=== PATIENT | female | born 1995 ===

== ENCOUNTER 2022-01-13 12:43 | Emergency (ER) | payer SELFPAY ==
[2022-01-13] MEDS ORDERED: ACETAMINOPHEN 500 MG TAB PO ONE (13:16)
--- NOTE | 2022-01-13 13:18 | Emergency Department Report ---
ED Female HPI - General Chief complaint: Vaginal Bleeding Stated complaint: 12 WEEKS BLEEDING Source: patient Mode of arrival: Ambulatory Limitations: No Limitations - History of Present Illness Initial comments: Patient is a A1 26-year-old female who is approximately 12 weeks gestation presented to the ED with complaint of acute onset suprapubic pain and vaginal bleeding for the last 8 hours. Patient states that the bleeding increased in intensity 4 hours prior to arrival in the ED. Patient denies dizziness, syncope, lightheadedness, headache, dysuria, urinary frequency and urgency, fall, traumatic injury, heavy lifting, low back pain, chest pain or shortness of breath, fever and chills. MD Complaint: vaginal bleeding, pelvic pain -: Sudden, hour(s) (8) Location: suprapubic, other (Vaginal) Radiation: non-radiating Severity: severe Severity scale (0 -10): 7 Quality: cramping, sharp Consistency: constant Improves with: none Worsens with: movement Are you Now?: Yes Associated Symptoms: vaginal bleeding, abdominal pain (suprapubic) - Related Data Sexually active: Yes : 2 Para: 0 A: 1 Previous Rx's Medication Instructions Recorded Last Taken Type Acetaminophen [Tylenol] 500 mg PO Q6HR PRN #40 tablet 01/13/22 Unknown Rx Allergies Allergy/AdvReac Type Severity Reaction Status Date / Time No Known Allergies Allergy Verified 01/13/22 12:52 ED Review of Systems ROS: Stated complaint: 12 WEEKS BLEEDING Other details as noted in HPI Constitutional: denies: chills, fever Eyes: denies: eye pain, eye discharge, vision change ENT: denies: ear pain, throat pain Respiratory: denies: cough, shortness of breath, wheezing Cardiovascular: denies: chest pain, palpitations Endocrine: no symptoms reported Gastrointestinal: denies: abdominal pain, nausea, vomiting, diarrhea Genitourinary: denies: urgency, dysuria, discharge Musculoskeletal: denies: back pain, joint swelling, arthralgia Skin: denies: rash, lesions Neurological: denies: headache, weakness, paresthesias Psychiatric: denies: anxiety, depression Hematological/Lymphatic: denies: easy bleeding, easy bruising ED Past Medical Hx - Medications Home Medications: Home Medications Medication Instructions Recorded Confirmed Last Taken Type Acetaminophen [Tylenol] 500 mg PO Q6HR PRN #40 tablet 01/13/22 Unknown Rx ED Physical Exam - General Limitations: No Limitations General appearance: alert, in no apparent distress - Head Head exam: Present: atraumatic, normocephalic, normal inspection - Eye Eye exam: Present: normal appearance, PERRL, EOMI Pupils: Present: normal accommodation - ENT ENT exam: Present: normal exam, normal orophraynx, mucous membranes moist, TM's normal bilaterally, normal external ear exam - Neck Neck exam: Present: normal inspection, full ROM. Absent: tenderness - Respiratory Respiratory exam: Present: normal lung sounds bilaterally. Absent: respiratory distress, wheezes, rales, rhonchi, chest wall tenderness, accessory muscle use, prolonged expiratory - Cardiovascular Cardiovascular Exam: Present: regular rate, normal rhythm, normal heart sounds. Absent: systolic murmur, diastolic murmur, rubs, gallop - GI/Abdominal GI/Abdominal exam: Present: soft, tenderness (Suprapubic tenderness), normal bowel sounds. Absent: guarding, rebound, hyperactive bowel sounds, hypoactive bowel sounds, organomegaly, mass, bruit - Bi-manual exam: Present: other (Pelvic exams deferred at this time) - Extremities Exam Extremities exam: Present: normal inspection, full ROM, normal capillary refill. Absent: tenderness - Back Exam Back exam: Present: normal inspection, full ROM. Absent: tenderness, CVA tenderness (R), CVA tenderness (L), muscle spasm, paraspinal tenderness, vertebral tenderness - Neurological Exam Neurological exam: Present: alert, oriented X3, CN II-XII intact, normal gait, reflexes normal - Psychiatric Psychiatric exam: Present: normal affect, normal mood - Skin Skin exam: Present: warm, dry, intact, normal color. Absent: rash ED Course Vital Signs 01/13/22 12:52 Temperature 98.2 F Pulse Rate 90 Respiratory 16 Rate Blood Pressure 115/73 [Left] O2 Sat by Pulse 98 Oximetry ED Medical Decision Making - Lab Data Result diagrams: 01/13/22 14:16 01/13/22 14:16 - Radiology Data Radiology results: report reviewed, image reviewed [facility] [address] [place] [address] Ultrasound Report Signed Patient: BERNADETTE LACEY MR#: [id number] : 1995 Acct:[id number] Age/Sex: 26 / F ADM Date: 01/13/22 Loc: ED Attending Dr: Ordering Physician: SALLY PAREDES Date of Service: 01/13/22 Procedure(s): US OB <= 14 weeks fetus Accession Number(s): [id number] cc: SALLY PAREDES ULTRASOUND OBSTETRIC INDICATION / CLINICAL INFORMATION: vaginal bleeding. Clinical Gestational Age (GA) in weeks, days: 12, 1 TECHNIQUE: Transabdominal. COMPARISON: None available. FINDINGS: GESTATIONAL SAC: Well-defined oval shape and intrauterine in location. YOLK SAC: Not visualized EMBRYO/FETUS: No significant abnormality. - [place]-Rump Length = 6.8 cm = 13, 1 weeks, days - Heart Rate, beats per minute (if present) = 152 ADNEXA: No significant abnormality. FREE FLUID: None. ADDITIONAL FINDINGS: There is an anterior placenta with a small (less than 50 %) subchorionic hemorrhage. Body and limb movements are noted. The biparietal diameter of 2.2 cm corresponding to a 13 week 5 day gestation and a femur length of 1.1 cm corresponding to a 13 week 2 day gestation. IMPRESSION: 1. Single, living intrauterine with estimated sonographic age of 13, 3 weeks, days. heart tones noted at 153 bpm. There is a small (less than 50%) subchorionic hemorrhage Signer Name: Eitan Valencia DO Signed: 01/13/2022 2:26 PM Workstation Name: [id number] Transcribed By: ELEN Dictated By: EITAN VALENCIA DO Electronically Authenticated By: EITAN VALENCIA DO Signed Date/Time: 01/13/221425 DD/ 21 TD/TT: - Medical Decision Making This is a A1 26-year-old female who is approximately 12 weeks gestation presented to the ED with complaint of acute onset suprapubic pain and vaginal bleeding for the last 8 hours. Patient states that the bleeding increased in intensity 4 hours prior to arrival in the ED. in the ED, patient is alert and oriented x3 and is not in any distress. Patient was treated for pain in the ED with Tylenol. Lab test results were reviewed and are all nonactionable. Transvaginal ultrasound showed a single, living intrauterine with estimated sonographic age of 13, 3 weeks, days. heart tones noted at 153 bpm. There is a small (less than 50%) subchorionic hemorrhage. On reevaluation, patient's pain is well controlled medication. Patient will discharge home on pain medications and advised to follow-up with her [facility] physician in 5 to 7 days for reevaluation. Patient was also advised to observe complete pelvic rest with no heavy lifting, strenuous physical or sexual activity. Patient was advised to return to the ED immediately if symptoms get worse. - Differential Diagnosis Threatened miscarriage; UTI; subchorionic bleeding; ovarian cyst; Critical care attestation.: If time is entered above; I have spent that time in minutes in the direct care of this critically ill patient, excluding procedure time. ED Disposition Clinical Impression: Threatened in second trimester, Vaginal abnormality in , Abdominal pain during in second trimester Disposition: 01 HOME / SELF CARE / HOMELESS Is pt being admited?: No Does the pt Need Aspirin: No Condition: Stable Instructions: Abdominal Pain, Adult, [id number], Vaginal Bleeding During P regnancy, Second Trimester, Threatened Miscarriage, [id number] Additional Instructions: La ecografa transvaginal mostr un cherelle embarazo intrauterino vivo con giovanni edad ecogrfica estimada de 13, 3 semanas, wills. Tonos cardacos fetales observados a 153 lpm. Hay giovanni hemorragia subcorinica pequea (menos del 50%). Por lo tanto, mantenga un descanso plvico completo, to me Tylenol segn sea necesario para el dolor, mckenzie un seguimiento con finn mdico obstetra/gineclogo en 3 a 5 wills para giovanni reevaluacin. Regrese al servicio de urgencias inmediatamente si los sntomas empeoran. Prescriptions: Acetaminophen [Tylenol] 500 mg PO Q6HR PRN #40 tablet PRN Reason: Pain , Severe (7-10) Referrals: LEDA ESCALERA MD [Staff Physician] - 3-5 Days Time of Disposition: 15:36 Print Language: ANGUILLAN
[2022-01-13 14:08] LABS: HCG Qualitative,Urine Positive (Negative)
[2022-01-13 14:09] LABS: Bilirubin,Urine NEG (Negative); Blood,Urine MOD (Negative); Color,Urine Colorless (Yellow); Protein,Urine <15 mg/dL mg/dL (Negative); RBC,Urine < 1.0 /HPF (0.0-6.0); Urobilinogen,Urine < 2.0 mg/dL (<2.0)
--- NOTE | 2022-01-13 14:30 | Ultrasound Report ---
ULTRASOUND OBSTETRIC INDICATION / CLINICAL INFORMATION: vaginal bleeding. Clinical Gestational Age (GA) in weeks, days: 12, 1 TECHNIQUE: Transabdominal. COMPARISON: None available. FINDINGS: GESTATIONAL SAC: Well-defined oval shape and intrauterine in location. YOLK SAC: Not visualized EMBRYO/FETUS: No significant abnormality. - [place]-Rump Length = 6.8 cm = 13, 1 weeks, days - Heart Rate, beats per minute (if present) = 152 ADNEXA: No significant abnormality. FREE FLUID: None. ADDITIONAL FINDINGS: There is an anterior placenta with a small (less than 50 %) subchorionic hemorrh age. Body and limb movements are noted. The biparietal diameter of 2.2 cm corresponding to a 13 week 5 day gestation and a femur length of 1.1 cm corresponding to a 13 week 2 day gestation. IMPRESSION: 1. Single, living intrauterine with estimated sonographic age of 13, 3 weeks, days. heart tones noted at 153 bpm. There is a small (less than 50%) subchorionic hemorrhage Signer Name: Eitan Saldana DO Signed: 01/13/2022 2:26 PM Workstation Name: [id number]
[2022-01-13 14:34] LABS: Basophils % (Auto) 0.5 % (0.0-1.8); Eosinophils % (Auto) 0.3 % (0.0-4.3); Hematocrit 37.9 % (30.3-42.9); Hemoglobin 13.3 gm/dl (10.1-14.3); Lymphocytes # (Auto) 2.8 K/mm3 (1.2-5.4); Lymphocytes % (Auto) 32.3 % (13.4-35.0); Mean Corpuscular HGB Conc 35 % (30-34); Mean Corpuscular Volume 84 fl (79-97); Monocytes # (Auto) 0.5 K/mm3 (0.0-0.8); Platelet Count 275 K/mm3 (140-440); Red Blood Count 4.54 M/mm3 (3.65-5.03); Red Cell Distribution Width 13.3 % (13.2-15.2)
[2022-01-13 15:10] LABS: Alanine Aminotransferase 65 units/L (7-56); Albumin 4.2 g/dL (3.9-5); Blood Urea Nitrogen 14 mg/dL (7-17); Calcium 8.9 mg/dL (8.4-10.2); Hemolysis Index 2
[2022-01-13 15:22] LABS: BUN/Creatinine Ratio 23
[2022-01-13 17:37] VITALS: BP 124/62
== END 2022-01-13 17:36 | disposition home or self-care (01) ==
LOC: ED 12:43
DX: O20.0 Threatened abortion (principal); Q52.4 Other congenital malformations of vagina; R10.9 Unspecified abdominal pain; Z3A.12 12 weeks gestation of pregnancy
CPT/HCPCS: 36415; 76801; 80053; 81001; 81025; 84702; 85025; 86900; 86901; 99284